=== PATIENT | female | born 1960 | race Caucasian/White ===

== ENCOUNTER → 2017-02-10 | Outpatient (CLI) | payer OTHER | LOC: CIMAGING 13:50 | PROVIDERS: ATTEND Podiatrist | DX: M21.42 Flat foot [pes planus] (acquired), left foot (principal); M72.2 Plantar fascial fibromatosis; M77.52 Other enthesopathy of left foot and ankle; G57.52 Tarsal tunnel syndrome, left lower limb | CPT/HCPCS: 73630-PO ==

== ENCOUNTER → 2017-03-20 | Outpatient (CLI) | payer OTHER | LOC: GIMAGING 13:27 | PROVIDERS: ATTEND Emergency Medicine | DX: R05 Cough (principal) | CPT/HCPCS: 71020-PO ==

== ENCOUNTER → 2018-01-15 | Outpatient (CLI) | payer OTHER | LOC: FIMAGING 13:44 | PROVIDERS: ATTEND Family Medicine | DX: Z12.31 Encounter for screening mammogram for malignant neoplasm of breast (principal) ==

== ENCOUNTER → 2018-02-11 | Outpatient (CLI) | payer OTHER | LOC: FIMAGING 11:15 | PROVIDERS: ATTEND Family Medicine | DX: Z13.820 Encounter for screening for osteoporosis (principal); M85.89 Other specified disorders of bone density and structure, multiple sites; Z78.0 Asymptomatic menopausal state ==